=== PATIENT | female | born 1980 | race Caucasian/White ===

== ENCOUNTER → 2017-11-01 | Outpatient (CLI) | payer MEDICAID ==
--- NOTE | 2017-11-01 16:03 | RADIOLOGY REPORT (SQ) ---
EXAM DESCRIPTION: NM HIDA SCAN WITH CCK COMPLETED DATE/TIME: 11/01/2017 3:40 pm REASON FOR STUDY: RUQ ABD PAIN (R10.11) R10.11 RIGHT UPPER QUADRANT PAIN COMPARISON: Report from outside right upper quadrant ultrasound 10/22/2017 RADIONUCLIDE AND DOSE: DOSAGE RADIONUCLIDE: 5.3 millicuries Tc99m Mebrofenin. DOSAGE CCK: 1.3 micrograms. DOSAGE MORPHINE: Not required. The route of agent administration: Intravenous TECHNIQUE: Serial imaging right upper quadrant up to 60 minutes following injection of radionuclide. CCK injected after gallbladder visualized. LIMITATIONS: None. FINDINGS: LIVER: Normal visualization without areas of photopenia. INTRAHEPATIC BILE DUCTS: Normal visualization. COMMON BILE DUCT: Normal visualization. GALLBLADDER: Normal visualization. Post cholecystokinin, there was no appreciable gallbladder cont raction. Gallbladder continued to accumulated activity over the 30 minutes interval post CCK. PHYSICAL RESPONSE: Patients presenting complaint was reproduced. Patient had right upper quadrant p ain and pressure, similar compared to her prior episodes of pain. OTHER: No other significant finding. IMPRESSION: No scintigraphic evidence of cystic duct or common duct obstruction. No appreciable gallbladder contraction after IV CCK. IV cholecystokinin reproduced the patient's symptoms TECHNICAL DOCUMENTATION: JOB ID: [id number] [employer]- All Rights Reserved
== END ==
LOC: RAD 12:35
PROVIDERS: ATTEND Internal Medicine
DX: R10.11 Right upper quadrant pain (principal)
CPT/HCPCS: 78227; A9537; Q9969; J2805

== ENCOUNTER 2017-11-24 12:42 | Day surgery (SDC) | payer MEDICAID ==
[2017-11-22 11:44] LABS: ABSOLUTE BASOPHILS # (AUTO) 0.1 10^3/uL (0.0-0.2); ABSOLUTE EOSINOPHILS # (AUTO) 0.1 10^3/uL (0.0-0.6); ABSOLUTE LYMPHOCYTES (AUTO) 2.1 10^3/uL (0.5-4.7); ABSOLUTE MONOCYTES (AUTO) 0.4 10^3/uL (0.1-1.4); ABSOLUTE NEUT (AUTO) 3.9 10^3/uL (1.7-8.2); BASOPHILS % (AUTO) 0.9 % (0-2); EOSINOPHILS % (AUTO) 1.7 % (0-6); HEMOGLOBIN 13.4 g/dL (12.0-15.5); LYMPHOCYTES % (AUTO) 32.5 % (13-45); MEAN CORPUSCULAR HEMOGLOBIN 29.4 pg (27.0-33.4); MEAN CORPUSCULAR HGB CONC 33.4 g/dL (32.0-36.0); MEAN CORPUSCULAR VOLUME 88 fl (80-97); MONOCYTES % (AUTO) 6.4 % (3-13); PLATELET COUNT 276 10^3/uL (150-450); RED BLOOD COUNT 4.55 10^6/uL (3.72-5.28); RED CELL DISTRIBUTION WIDTH 12.8 % (11.5-14.0); SEGMENTED NEUTROPHILS % (AUTO) 58.5 % (42-78); TOTAL CELLS COUNTED % (AUTO) 100 %; WHITE BLOOD COUNT 6.6 10^3/uL (4.0-10.5)
[2017-11-22 12:10] LABS: ANION GAP 10 (5-19); BLOOD UREA NITROGEN 13 mg/dL (7-20); CALCIUM 9.9 mg/dL (8.4-10.2); CARBON DIOXIDE 32 mmol/L (22-30); CHLORIDE 99 mmol/L (98-107); GLUCOSE 88 mg/dL (75-110); POTASSIUM 4.2 mmol/L (3.6-5.0); SODIUM 141.1 mmol/L (137-145)
[2017-11-22 13:02] LABS: ALANINE AMINOTRANSFERASE 21 U/L (9-52); ALBUMIN 4.7 g/dL (3.5-5.0); ALKALINE PHOSPHATASE 56 U/L (38-126); AMYLASE 54 U/L (30-110); ASPARTATE AMINO TRANSFERASE 21 U/L (14-36); BILIRUBIN,DIRECT 0.3 mg/dL (0.0-0.4); BILIRUBIN,TOTAL 0.3 mg/dL (0.2-1.3)
[~2017-11-24 12:42] MED LIST: CIPROFLOXACIN 400 MG/D5W RTU 400 MG/200 ML RTUPB IV PRN; DEXAMETHASONE SOD PHOSPHATE INJ 4 MG/1 ML VIAL ONE; GLYCOPYRROLATE INJ 0.4 MG/2 ML VIAL ONE; LIDOCAINE 0.5% INJ-PF (5 MG/ML) 50 ML SDV SUBCUT PRN; LIDOCAINE 2% INJ-PF (20 MG/ML) 2 ML AMPUL ONE; NEOSTIGMINE METHYLSULFATE 10 MG/10 ML VIAL ONE; ONDANSETRON HCL INJ/PF 4 MG/2 ML SDV ONE; SUCCINYLCHOLINE CHLORIDE INJ 200 MG/10 ML VIAL ONE; VECURONIUM BROMIDE INJ 10 MG VIAL IV ONE
[2017-11-24] MEDS: LACTATED RINGERS 1000 ML IV PRN ×2 (13:25→16:00)
[2017-11-24] MEDS ORDERED: FAMOTIDINE INJ/PF 20 MG/2 ML SDV IV ONE (14:24)
[2017-11-24] MEDS ORDERED: RINGERS SOLUTION,LACTATED 1,000 ML IV PRN (14:48)
[2017-11-24] MEDS ORDERED: MIDAZOLAM 2 MG/2 ML INJ IV PRN (14:49)
[2017-11-24] MEDS ORDERED: RINGERS SOLUTION,LACTATED 1,000 ML IV ONE (15:00)
[2017-11-24] MEDS ORDERED: SCOPOLAMINE HYDROBROMIDE 1.5 MG PATCH.TD72 TD ONE (15:00)
[2017-11-24] MEDS ORDERED: BUPIVACAINE HCL 0.25 % INJ/PF (2.5 MG/1 ML) 30 ML VIAL ONE (16:05)
[2017-11-24] MEDS ORDERED: ACETAMINOPHEN 100 ML IV ONE (16:31)
[2017-11-24] MEDS ORDERED: MIDAZOLAM 2 MG/2 ML INJ ONE (16:31)
[2017-11-24] MEDS ORDERED: PROPOFOL INJ 200 MG/20 ML VIAL IV ONE (16:31)
[2017-11-24] MEDS ORDERED: HYDROMORPHONE HCL INJ/PF 2 MG/ML AMPULE ONE (16:31)
[2017-11-24] MEDS ORDERED: FENTANYL CITRATE INJ/PF 100 MCG/2 ML AMPUL ONE (16:31)
[2017-11-24] MEDS ORDERED: MORPHINE SULFATE 10 MG/ML INJ IV PRN (17:23)
[2017-11-24] MEDS ORDERED: MEPERIDINE HCL/PF INJ 25 MG/1 ML DISP.SYRIN IV PRN (17:23)
[2017-11-24] MEDS ORDERED: FENTANYL CITRATE INJ/PF 100 MCG/2 ML AMPUL IV PRN ×3 (17:23)
[2017-11-24] MEDS ORDERED: DIPHENHYDRAMINE HCL 50 MG/ML VIAL IV PRN (17:23)
[2017-11-24] MEDS ORDERED: PROMETHAZINE HCL INJ 25 MG/1 ML VIAL IV PRN (17:23)
--- NOTE | 2017-11-24 17:24 | Operative Report ---
Operative Report DATE OF SURGERY: 11/24/17 PREOPERATIVE DIAGNOSIS: Biliary dyskinesia POSTOPERATIVE DIAGNOSIS: Same OPERATION: Laparoscopic cholecystectomy SURGEON: TATUM PACHECO ANESTHESIA: GA TISSUE REMOVED OR ALTERED: 1 gallbladder COMPLICATIONS: None ESTIMATED BLOOD LOSS: Scant INTRAOPERATIVE FINDINGS: See below PROCEDURE: After obtaining informed consent, the patient was taken to the operating room. General Anesthesia was induced; the arms were extended, and the abdomen was exposed, and prepped and draped in a sterile fashion. Instrumentation was set up for laparoscopic cholecystectomy. Surgical plan and surgical timeout were conducted. A vertical incision was made above the umbilicus, and a verres needle was inserted uneventfully into the peritoneal cavity. Pneumoperitoneum was established. The verres needle was removed and a 5 mm trocar was inserted and a 5 mm flexible laparoscope was inserted. Visualization of the peritoneal cavity confirmed safe uneventful entry. Under direct visualization 3 additional 5 mm ports were established, one in the subxiphoid position and second in the subcostal position. Visualization of the hepatobiliary anatomy revealed no anatomic variations. A grasper was placed on the fundus of the gallbladder and the gallbladder is elevated over the right surface of the liver; a second grasper was used to grasp the infundibulum of the gallbladder. The neck of the gallbladder and junction with the cystic duct was dissected out. The Cystic artery was in its usual location medial and cephalad to the cystic duct. The cystic artery was surrounded with a right angle clamp, clipped twice proximally and divided with laparoscopic scissors. We now opened the triangle of Calot by dividing the peritoneal reflection on both the medial and lateral sides of the cystic duct infundibular junction. The critical view was obtained. We now milked the cystic duct of any possible stones, clipped the cystic duct approximately 2 times once distally and divided with scissors. The gallbladder was now removed from the undersurface of the liver using hook cautery dissection. Graspers were repositioned and the gallbladder was removed uneventfully from the abdominal cavity through the super umbilical port site incision. The specimen was examined, then passed off to pathology for permanent analysis. We returned to the peritoneal cavity check for bleeding, and evidence of bile leak, and there was none. We Confirmed satisfactory placement of clips on cystic duct and cystic artery were secured . At this point we felt the operation was complete. The subcutaneous tissue was then anesthetized with quarter percent Marcaine Sponge and needle counts are correct. All ports removed under direct visualization pneumoperitoneum evacuated, and 5 mm port wounds closed with 3-0 Vicryl suture, benzoin and Steri-Strips. The patient was extubated, and taken to the recovery room in stable condition.
--- NOTE | 2017-11-24 17:26 | PDOC DISCHARGE SUMMARY ---
Discharge Summary (SDC) - Discharge Final Diagnosis: Biliary dyskinesia Date of Surgery: 11/24/17 Discharge Date: 11/24/17 Condition: Good Treatment or Instructions: [facility] [address] [place] [id number] Discharge Instructions: Laparoscopic Surgery 1. General Information: a. DO NOT DRIVE a car or operate dangerous machinery for 3-4 days or while taking narcotic pain pills. b. DO NOT consume alcohol, tranquilizers, sleeping medications or any non- prescribed medications for 24 hours unless approved by your doctor or as long as taking narcotic prescription medications. c. DO NOT make important decisions or sign any important papers for the first 24 hours after surgery. d. When discharged home the same day of surgery have a responsible person with you for the first night. 2. Activity Restrictions: 2 weeks. a. NO heavy lifting, straining abdominal muscles, bending over a lot, yard work, house work, or sports for 2 weeks. b. c. It is fine to go for walks, up and down steps, ride in a car. d. Elevate your head when sleeping/resting. 3. Treatment: a. You may shower 24 hours after surgery, no baths or swimming for 2 weeks. Remove band-aids or dressings before shower but leave paper strips (steri-strips ) on the skin to fall off on their own. If still on at postoperative visit they will be removed then. b. Drainage of fluid or blood is not unusual from an incision. If occurs, you can clean with peroxide and cotton ball daily and cover with dry gauze until the wound seals. c. If a lot of bleeding occurs, you can hold pressure with a gauze or cloth over the site for 10 minutes and it will usually stop. If bleeding continues you will need to call for possible evaluation in office or emergency room. 4. Medications: a. You may switch to plain Tylenol, Advil or Aleve as you transition from the narcotic. Many adults find good pain relief with Advil 600-800 mg three times a day with meals. This can cause indigestion, ulcers, and kidney problems with long-term use. b. You should resume all normal medications unless a change is specified by your doctors. c. Begin with clear liquids and may progress to your normal diet if not nauseated. No high fat, high protein foods the day of surgery. Normal diet 6. The following may occur after laparoscopic surgery: a. Shoulder or upper back ache from retained gas that should resolve in 1-2 days b. Soreness and bruising at incision sites will resolve with time. c. Scrotal swelling (labia in women) and bruising is often seen after hernia surgery. d. Sore throat e. Fatigue may last days to weeks. f. Difficulty urinating may occur and may need to come into emergency room for urinary catheter placement. 7. Notify Physician If: a. Worsening or pain not improved with pain medication b. Persistent nausea and vomiting c. Fever above 101 d. Persistent bleeding or swelling at operative site e. Unable to urinate and uncomfortable bladder 6-8 hours after surgery 8..Follow Up Care: a. Schedule a follow up appointment with your doctor for 2 weeks. In the event of any postoperative problems or questions or you may call the office during business hours or the On-Call physician evenings and weekends at [facility]. [facility] I understand the instructions for my postoperative care as described above and a copy has been given to me. Patient/Significant Other Witness Date Referrals: CURT ZAMARRIPA MD [Primary Care Provider] - Discharge Diet: As Tolerated Discharge Activity: Activity As Tolerated, No Lifting Over 10 Pounds, No Lifting /Push/Pulling Home Care Assistance: None Needed Report the Following to Your Physician Immediately: Shortness of Breath, Increase in Pain, Fever over 101 Degrees
[2017-11-24] MEDS: FENTANYL CITRATE INJ/PF 100 MCG/2 ML AMPUL ONE ×3 (17:55→18:05)
[2017-11-24] MEDS ORDERED: DIPHENHYDRAMINE HCL 50 MG/ML VIAL ONE (18:53)
[2017-11-24] MEDS ORDERED: OXYCODONE-ACETAMINOPHEN 5-325 MG TABLET ONE (19:10)
[2017-11-24 20:53] VITALS: BP 103/57
== END 2017-11-24 20:35 | disposition home or self-care (01) ==
LOC: OROUT 12:42
PROVIDERS: ATTEND Surgery
PROC: 0FT44ZZ Resection of Gallbladder, Percutaneous Endoscopic Approach (ICD-10-PCS; principal; 2017-11-24 15:00)
DX: K81.1 Chronic cholecystitis (principal); J45.909 Unspecified asthma, uncomplicated; G43.909 Migraine, unspecified, not intractable, without status migrainosus; G47.00 Insomnia, unspecified; Z80.0 Family history of malignant neoplasm of digestive organs
CPT/HCPCS: 47562; 36415; 82150; 85025; 81025; 80076; 80048; 88304 ×2; J2250; J1100; J1200; J3010; J3490 ×4; J0330; J2405; S0020; J2704; J0744; S0028; J0131; 790; J1170

== ENCOUNTER 2020-01-29 16:34 | Emergency (ER) | payer MEDICAID ==
[2020-01-29 16:44] VITALS: BP 124/58
--- NOTE | 2020-01-29 17:05 | ER Document Report ---
HPI - HPI Time Seen by Provider: 01/29/20 16:54 Context: 39-year-old female presents emergency department with complaints of cough congestion since January 25. Reports low-grade fever last night. Reports vomiting sometimes after coughing so hard. Reports a little bit of loose stools. Patient reports her best friend recently went to a [employer]. She reports that family was just notified that they were in contact with somebody with a coronavirus. Her best friend and her family are on quarantine for a week. Patient called the coronavirus line and was told to come to the emergency department. Associated Symptoms: Nonproductive cough, Fever, Sore throat Exacerbated by: Denies Relieved by: Denies Similar symptoms previously: No Recently seen / treated by doctor: No Past Medical History - General Information source: Patient - Social History Smoking Status: Unknown if Ever Smoked Frequency of alcohol use: Rare Drug Abuse: None Lives with: Family Family History: None Patient has suicidal ideation: No Patient has homicidal ideation: No - Past Medical History Cardiac Medical History: Denies: Hx Coronary Artery Disease, Hx Heart Attack, Hx Hypertension Pulmonary Medical History: Reports: Hx Asthma - RARELY USE INHALER Denies: Hx Bronchitis, Hx COPD, Hx Pneumonia Neurological Medical History: Reports: Hx Seizures - 5 YEARS AGO. Denies: Hx Cerebrovascular Accident Musculoskeletal Medical History: Denies Hx Arthritis Surgical Hx: Negative - Immunizations Hx Diphtheria, Pertussis, Tetanus Vaccination: No Vertical Provider Document - CONSTITUTIONAL Agree With Documented VS: Yes Exam Limitations: No Limitations General Appearance: WD/WN, No Apparent Distress - nontoxic looking - INFECTION CONTROL TRAVEL OUTSIDE OF THE [place] IN LAST 30 DAYS: No - HEENT HEENT: Atraumatic, Normocephalic, Pharyngeal Erythema. negative: Conjuctival Injection, Tympanic Membrane Red, Tympanic Membrane Bulging - NECK Neck: Normal Inspection, Supple. negative: Lymphadenopathy-Left, Lymphadenopathy-Right - RESPIRATORY Respiratory: Breath Sounds Normal, No Respiratory Distress - Respiratory rate even unlabored no retractions. negative: Rhonchi, Wheezing - CARDIOVASCULAR Cardiovascular: Regular Rate, Regular Rhythm - GI/ABDOMEN Gastrointestinal: Abdomen Soft, Abdomen Non-Tender - MUSCULOSKELETAL/EXTREMETIES Musculoskeletal/Extremeties: MAEW, FROM - NEURO Level of Consciousness: Awake, Alert, Appropriate Motor/Sensory: No Motor Deficit - DERM Integumentary: Warm, Dry, No Rash - No visual rash Course - Re-evaluation Re-evalutation: 01/29/20 17:03 Patient presents with cough cold sore throat. Patient was in recent contact with a person that was exposed to somebody with a coronavirus. Chest x-ray strep and influenza ordered. Patient has respiratory rate even unlabored no distress looks nontoxic. - Vital Signs Vital signs: Temp Pulse Resp BP Pulse Ox 98.3 F 94 20 124/58 L 97 01/29/20 16:43 01/29/20 16:43 01/29/20 16:43 01/29/20 16:43 01/29/20 16:43 Discharge - Discharge Clinical Impression: Cough, Sore throat Condition: Stable Disposition: HOME, SELF-CARE Instructions: Sore Throat ([facility]), Acetaminophen, Fever ([facility]) Additional Instructions: *You have been evaluated for cold symptoms today, cough, fever, congestion, sore throat *Increase fluid intake as discussed *Take medication as prescribed *Monitor your temperature, take Tylenol as indicated *Follow up with a primary care provider in 3-5 days *Return to ED for worsening condition, changes, needs Referrals: CURT ZAMARRIPA MD [Primary Care Provider] - Follow up in 3-5 days
--- NOTE | 2020-01-29 17:18 | ER Document Report ---
ED Medical Screen (RME) - General Chief Complaint: Congestion Stated Complaint: COUGH/CONGESTION Time Seen by Provider: 01/29/20 16:54 Primary Care Provider: CURT ZAMARRIPA MD [Primary Care Provider] - Follow up in 3-5 days Mode of Arrival: Ambulatory Information source: Patient Notes: 39-year-old female presents emergency department with complaints of cough co ngestion since January 25. Reports low-grade fever last night. Reports vomiting sometimes after coughing so hard. Reports a little bit of loose stools. Patient reports her best friend recently went to a [employer]. She reports that family was just notified that they were in contact with somebody with a coronavirus. Her best friend and her family are on quarantine for a week. Patient called the coronavirus line and was told to come to the emergency department. I have greeted and performed a rapid initial assessment of this patient. A comprehensive ED assessment and evaluation of the patient, analysis of test results and completion of the medical decision making process will be conducted by additional ED providers. TRAVEL OUTSIDE OF THE [place] IN LAST 30 DAYS: No - Related Data Allergies/Adverse Reactions: Penicillins Allergy (Mild, Verified 01/29/20 16:50) GI upset Past Medical History - Social History Chew tobacco use (# tins/day): No Frequency of alcohol use: Rare Drug Abuse: None - Past Medical History Cardiac Medical History: Denies: Hx Coronary Artery Disease, Hx Heart Attack, Hx Hypertension Pulmonary Medical History: Reports: Hx Asthma - RARELY USE INHALER Denies: Hx Bronchitis, Hx COPD, Hx Pneumonia Neurological Medical History: Reports: Hx Seizures - 5 YEARS AGO. Denies: Hx Cerebrovascular Accident Musculoskeltal Medical History: Denies Hx Arthritis Surgical Hx: Negative - Immunizations Hx Diphtheria, Pertussis, Tetanus Vaccination: No Physical Exam - Vital signs Vitals: Temp Pulse Resp BP Pulse Ox 98.3 F 94 20 124/58 L 97 01/29/20 16:43 01/29/20 16:43 01/29/20 16:43 01/29/20 16:43 01/29/20 16:43 Course - Vital Signs Vital signs: Temp Pulse Resp BP Pulse Ox 98.3 F 94 20 124/58 L 97 01/29/20 16:43 01/29/20 16:43 01/29/20 16:43 01/29/20 16:43 01/29/20 16:43 Doctor's Discharge - Discharge Clinical Impression: Cough, Sore throat Condition: Stable Disposition: HOME, SELF-CARE Instructions: Acetaminophen, Fever ([facility]), Sore Throat ([facility]) Additional Instructions: *You have been evaluated for cold symptoms today, cough, fever, congestion, sore throat *Increase fluid intake as discussed *Take medication as prescribed *Monitor your temperature, take Tylenol as indicated *Follow up with a primary care provider in 3-5 days *Return to ED for worsening condition, changes, needs Referrals: CURT ZAMARRIPA MD [Primary Care Provider] - Follow up in 3-5 days
[2020-01-29 18:02] LABS: A TYPE INFLUENZA AG NEGATIVE (NEGATIVE); B INFLUENZA AG NEGATIVE (NEGATIVE)
--- NOTE | 2020-01-29 18:15 | RADIOLOGY REPORT (SQ) ---
EXAM DESCRIPTION: CHEST SINGLE VIEW COMPLETED DATE/TIME: 01/29/2020 5:53 pm REASON FOR STUDY: cough COMPARISON: None. EXAM PARAMETERS: NUMBER OF VIEWS: One view. TECHNIQUE: Single frontal radiographic view of the chest acquired. RADIATION DOSE: NA LIMITATIONS: None. FINDINGS: LUNGS AND PLEURA: No opacities, masses or pneumothorax. No pleural effusion. MEDIASTINUM AND HILAR STRUCTURES: No masses. Contour normal. HEART AND VASCULAR STRUCTURES: Heart normal in size. Normal vasculature. BONES: No acute findings. HARDWARE: None in the chest. OTHER: No other significant finding. IMPRESSION: NO ACUTE RADIOGRAPHIC FINDING IN THE CHEST. TECHNICAL DOCUMENTATION: JOB ID: [id number] [employer]- All Rights Reserved Reading location - IP/workstation name: [email or web address]
--- NOTE | 2020-01-29 18:46 | ER Document Report ---
HPI - HPI Time Seen by Provider: 01/29/20 16:54 Pain Level: 2 Context: Patient is a 39-year-old female who presents the emergency department with a chief complaint of cough, congestion, and a temperature of 100.9 at home. Patient states that she was exposed to another person who was told to self quarantine. Patient denies any past medical history. She does not take any medications. - EENT EENT: REPORTS: Sore Throat. DENIES: Ear Pain, Eye problems - NEURO Neurology: REPORTS: Weakness. DENIES: Headache, Vision blurred, Dizzinesss / Vertigo - CARDIOVASCULAR Cardiovascular: REPORTS: Chest pain - RESPIRATORY Respiratory: REPORTS: Trouble Breathing, Coughing - GASTROINTESTINAL Gastrointestinal: DENIES: Abdominal Pain, Black / Bloody Stools - URINARY Urinary: DENIES: Dysuria, Urgency, Frequency - REPRODUCTIVE LMP: 01/15/20 Reproductive: DENIES: : - MUSCULOSKELETAL Musculoskeletal: DENIES: Extremity pain Past Medical History - General Information source: Patient - Social History Smoking Status: Never Smoker Chew tobacco use (# tins/day): No Frequency of alcohol use: Rare Drug Abuse: None Family History: Reviewed & Not Pertinent Patient has suicidal ideation: No Patient has homicidal ideation: No - Past Medical History Cardiac Medical History: Denies: Hx Coronary Artery Disease, Hx Heart Attack, Hx Hypertension Pulmonary Medical History: Reports: Hx Asthma - RARELY USE INHALER Denies: Hx Bronchitis, Hx COPD, Hx Pneumonia Neurological Medical History: Reports: Hx Seizures - 5 YEARS AGO. Denies: Hx Cerebrovascular Accident Musculoskeletal Medical History: Denies Hx Arthritis Surgical Hx: Negative - Immunizations Hx Diphtheria, Pertussis, Tetanus Vaccination: No Vertical Provider Document - CONSTITUTIONAL Agree With Documented VS: Yes Exam Limitations: No Limitations General Appearance: No Apparent Distress - INFECTION CONTROL TRAVEL OUTSIDE OF THE [place] IN LAST 30 DAYS: No - HEENT HEENT: Atraumatic, Normocephalic, PERRLA - NECK Neck: Normal Inspection. negative: Lymphadenopathy-Left, Lymphadenopathy-Right - RESPIRATORY Respiratory: negative: Breath Sounds Normal, No Respiratory Distress - CARDIOVASCULAR Cardiovascular: Regular Rate, Regular Rhythm Pulses: Normal: Radial - MUSCULOSKELETAL/EXTREMETIES Musculoskeletal/Extremeties: FROM - NEURO Level of Consciousness: Awake, Alert, Appropriate Motor/Sensory: No Motor Deficit, No Sensory Deficit - DERM Integumentary: Warm, Dry, No Rash Course - Re-evaluation Re-evalutation: 01/29/20 18:48 Chest x-ray and influenza tests are negative. At this time, the patient will be tested for COVID 19. Instructed the patient to self isolate. Instructed her to wash her hands frequently. She is in agreement with this plan. I offered the patient some Zofran to go home with and she states that she only vomits when she coughs a lot. She states that she is able to control her cough at home. Follow-up precautions were given. Verbal discharge instructions were given to the patient. They verbalized understanding. They are stable for discharge. - Vital Signs Vital signs: Temp Pulse Resp BP Pulse Ox 98.3 F 94 20 124/58 L 97 01/29/20 16:43 01/29/20 16:43 01/29/20 16:43 01/29/20 16:43 01/29/20 16:43 Discharge - Discharge Clinical Impression: Cough, Sore throat Condition: Stable Disposition: HOME, SELF-CARE Instructions: Acetaminophen, Fever ([facility]), Sore Throat ([facility]) Additional Instructions: *You have been evaluated for cold symptoms today, cough, fever, congestion, sore throat *Increase fluid intake *Take medication as prescribed *Take Tylenol and ibuprofen for fever pain. *Follow up with a primary care provider Please self quarantine for 14 days. If you test negative for COVID 19, you are released from quarantine. Wash your hands frequently, wear a mask when indicated. Do not cough on anyone. Referrals: CURT ZAMARRIPA MD [Primary Care Provider] - Follow up as needed
== END 2020-01-29 19:01 | disposition home or self-care (01) ==
LOC: ER 16:34
DX: R05 Cough (principal); J02.9 Acute pharyngitis, unspecified; R53.1 Weakness; R07.9 Chest pain, unspecified; J45.909 Unspecified asthma, uncomplicated; Z20.828 Contact with and (suspected) exposure to other viral communicable diseases
CPT/HCPCS: 36415; 71045; 87070; 87635; 87804; 87880; 99283

== ENCOUNTER 2020-02-04 16:12 | Emergency (ER) | payer MEDICAID ==
[2020-02-04] MEDS ORDERED: KETOROLAC TROMETHAMINE INJ/PF 30 MG/1 ML SDV IV ONE (16:43)
--- NOTE | 2020-02-04 16:43 | ER Document Report ---
HPI - HPI Time Seen by Provider: 02/04/20 16:35 Pain Level: 2 Notes: Patient is a 39-year-old female who presents to the ED complaining of nasal congestion/discharge, dry nonproductive cough, fevers, body ache 1wk. She was eval'd 6 days ago and was told to be under quarantine. She had unremarkable labs at her last visit and a coronavirus test pending which is still pending. Patient states that her cough was becoming more harsh and she is getting some soreness in her chest only with her cough and when she pushes on her chest which is why she came back today. Patient states that she is still eating and drinking without difficulties. She is still urinating normally having normal bowel movements. Patient has been using some [id number] meds for symptoms. She denies any significant past medical history including cardiopulmonary history and immunocompromised conditions. Pt is not aware of any specific exposure to lin. Denies any current headache, neck pain, sore throat, palpitations, syncope, shortness of breath, wheeze, dyspnea, abdominal pain, nausea/vomiting/diarrhea, urinary retention, dysuria, hematuria, or rash. - ROS Systems Reviewed and Negative: Yes All other systems reviewed and negative - REPRODUCTIVE Reproductive: DENIES: : Past Medical History - Social History Smoking Status: Never Smoker Family History: Reviewed & Not Pertinent Patient has suicidal ideation: No Patient has homicidal ideation: No - Past Medical History Cardiac Medical History: Denies: Hx Coronary Artery Disease, Hx Heart Attack, Hx Hypertension Pulmonary Medical History: Reports: Hx Asthma - RARELY USE INHALER Denies: Hx Bronchitis, Hx COPD, Hx Pneumonia Neurological Medical History: Reports: Hx Seizures - 5 YEARS AGO. Denies: Hx Cerebrovascular Accident Musculoskeletal Medical History: Denies Hx Arthritis - Immunizations Hx Diphtheria, Pertussis, Tetanus Vaccination: No Vertical Provider Document - CONSTITUTIONAL Agree With Documented VS: Yes Notes: PHYSICAL EXAMINATION: GENERAL: Well-appearing, well-nourished and in no acute distress. HEAD: Atraumatic, normocephalic. EYES: Pupils equal round and reactive to light, extraocular movements intact, sclera anicteric, conjunctiva are normal. ENT: Nares patent and with clear discharge. oropharynx clear without exudates. No tonsilar hypertrophy or erythema. Moist mucous membranes. NECK: Normal range of motion, supple without lymphadenopathy Chest: + reproducible tenderness to palpation of the rt pectoral area and reproducible with arm extension/abduction. LUNGS: Breath sounds clear to auscultation bilaterally and equal. No wheezes rales or rhonchi. HEART: Regular rate and rhythm without murmurs, rubs, gallops. ABDOMEN: Soft, nontender, nondistended abdomen. No guarding, no rebound. Normal bowel sounds present. No CVA tenderness bilaterally. Musculoskeletal: FROM to passive/active. Strength 5+/5. Chavez neg. No asymmetry to LE's. Extremities: No cyanosis, clubbing, or edema b/l. Peripheral pulses 2+. Capillary refill less than 3 seconds. NEUROLOGICAL: Normal speech, normal gait. PSYCH: Normal mood, normal affect. SKIN: Warm, Dry, normal turgor, no rashes or lesions noted. - INFECTION CONTROL TRAVEL OUTSIDE OF THE [place] IN LAST 30 DAYS: No Course - Re-evaluation Re-evalutation: 02/04/20 Patient is an afebrile, well-hydrated, 39-year-old female who presents to the ED with acute URI, suspect viral, questionable COVID/Influenza. Pt has reproducible chest wall tenderness that is only present with a cough and palpation. No CP, SOB, or dyspnea otherwise. Vitals are acceptable. PE is otherwise unremarkable. Rapid strep, influenza, and chest XR negative at last visit and repeat chest x-ray remains unremarkable. COVID testing performed and is still pending from her last visit. No further labs or imaging warranted at this time based on H&P. Patient has no significant cardiopulmonary or immunocompromised medical conditions. Patient's lungs are clear to auscultation bilaterally without tachycardia, hypoxia, or tachypnea. Patient is tolerating p.o. without any difficulties. PERC/Wells negative. Thoroughly reviewed self- quarantine until notified about your viral testing. Stressed the importance of it and the risks/benefits. Low suspicion for any meningitis, sepsis, peritonsillar/pharyngeal abscess, respiratory compromise, severe dehydration, pneumonia, or other emergent systemic condition at this time. Patient is aware this condition can change from initial presentation and needs to monitor symptoms closely. Rx for tessalon, albuterol/spacer. Conservative measures otherwise for symptoms. Recheck with your PCM as needed otherwise. Return to the ED with any worsening/concerning symptoms otherwise as reviewed in discharge. Patient is in agreement. - Vital Signs Vital signs: Temp Pulse Resp BP Pulse Ox 98.5 F 73 23 H 120/62 98 02/04/20 16:33 02/04/20 16:33 02/04/20 16:33 02/04/20 16:33 02/04/20 16:33 Discharge - Discharge Clinical Impression: Acute URI Condition: Stable Disposition: HOME, SELF-CARE Instructions: Upper Respiratory Illness ([facility]) Additional Instructions: You have been tested for coronavirus. It is very important that you self- quarantine at home until notified about your lab result!! Maintain adequate fluid intake tylenol/ibuprofen as needed alternating every 3 hours for fever/body ache over the counter cold medication as needed for symptoms Humidified air may help Wash your hands regularly Wear a mask when coughing F/u: with your PCM as needed otherwise and/or when cleared Return to the ED with any fever, altered mental status/behavior, chest pain, palpitations, syncope, headache, neck pain/stiffness, shortness of breath, chest pains, wheezing, drooling, trouble swallowing/breathing, abdominal pain, n/v/d, rash, or worsening/concerning symptoms otherwise. Prescriptions: Benzonatate [Tessalon Perles 100 mg Capsule] 100 mg PO Q8HP PRN #15 capsule PRN Reason: Albuterol Sulfate [Proair HFA Inhalation Aerosol 8.5 gm MDI] 2 puff IH Q4H PRN #1 mdi PRN Reason: Inhaler, Assist Devices [Space Chamber Plus] 1 each MC ASDIR PRN #1 spacer PRN Reason: Referrals: CURT ZAMARRIPA MD [Primary Care Provider] - Follow up as needed
--- NOTE | 2020-02-04 17:07 | RADIOLOGY REPORT (SQ) ---
EXAM DESCRIPTION: CHEST SINGLE VIEW COMPLETED DATE/TIME: 02/04/2020 4:54 pm REASON FOR STUDY: cough COMPARISON: Chest x-ray 01/29/2020 EXAM PARAMETERS: NUMBER OF VIEWS: One view. TECHNIQUE: Single frontal radiographic view of the chest acquired. RADIATION DOSE: NA LIMITATIONS: None. FINDINGS: LUNGS AND PLEURA: No consolidation, pneumothorax or pleural effusion. MEDIASTINUM AND HILAR STRUCTURES: Contour normal. HEART AND VASCULAR STRUCTURES: Heart normal in size. Normal vasculature. BONES: No acute findings. HARDWARE: None in the chest. IMPRESSION: NO ACUTE RADIOGRAPHIC FINDING IN THE CHEST. TECHNICAL DOCUMENTATION: JOB ID: [id number] 2010 [employer]- All Rights Reserved Reading location - IP/workstation name: [email or web address]
[2020-02-04 17:27] VITALS: BP 100/58
== END 2020-02-04 17:27 | disposition home or self-care (01) ==
LOC: ER 16:12
DX: J06.9 Acute upper respiratory infection, unspecified (principal); R05 Cough; R50.9 Fever, unspecified; R09.89 Other specified symptoms and signs involving the circulatory and respiratory systems; J45.909 Unspecified asthma, uncomplicated
CPT/HCPCS: 99283; 96374; 71045; J1885

== ENCOUNTER 2020-02-17 13:25 | Emergency (ER) | payer MEDICAID ==
--- NOTE | 2020-02-17 13:34 | ER Document Report ---
ED Medical Screen (RME) - General Chief Complaint: Flank Pain Stated Complaint: RIGHT FLANK PAIN Time Seen by Provider: 02/17/20 13:30 Primary Care Provider: CURT ZAMARRIPA MD [Primary Care Provider] - Follow up as needed Mode of Arrival: Wheelchair Information source: Patient Notes: 39-year-old female with history of kidney stone 14 years ago presents to the e mergency department with complaints of lower abdominal, pain unable to void. Reports symptoms started yesterday. She reports she has not voided since early this morning. Complains of severe lower abdominal pain radiating to her pelvic. She did have a virtual appointment with her provider yesterday and was treated with antibiotics. She is unsure what she was treated with. She reports she is vomited due to the pain denies fever. Patient does not think she is . Reports her had a vasectomy. I have greeted and performed a rapid initial assessment of this patient. A comprehensive ED assessment and evaluation of the patient, analysis of test results and completion of the medical decision making process will be conducted by additional ED providers. TRAVEL OUTSIDE OF THE [place] IN LAST 30 DAYS: No - Related Data Allergies/Adverse Reactions: Penicillins Allergy (Mild, Verified 02/17/20 13:28) GI upset Past Medical History - Past Medical History Cardiac Medical History: Denies: Hx Coronary Artery Disease, Hx Heart Attack, Hx Hypertension Pulmonary Medical History: Reports: Hx Asthma - RARELY USE INHALER Denies: Hx Bronchitis, Hx COPD, Hx Pneumonia Neurological Medical History: Reports: Hx Seizures - 5 YEARS AGO. Denies: Hx Cerebrovascular Accident Musculoskeltal Medical History: Denies Hx Arthritis - Immunizations Hx Diphtheria, Pertussis, Tetanus Vaccination: No Physical Exam - Vital signs Vitals: Temp Pulse Resp BP Pulse Ox 97.9 F 70 24 H 127/67 H 100 02/17/20 13:28 02/17/20 13:28 02/17/20 13:28 02/17/20 13:28 02/17/20 13:28 Course - Vital Signs Vital signs: Temp Pulse Resp BP Pulse Ox 97.9 F 70 24 H 127/67 H 100 02/17/20 13:28 02/17/20 13:28 02/17/20 13:28 02/17/20 13:28 02/17/20 13:28 Doctor's Discharge - Discharge Referrals: CURT ZAMARRIPA MD [Primary Care Provider] - Follow up as needed
[2020-02-17] MEDS ORDERED: ONDANSETRON HCL INJ/PF 4 MG/2 ML SDV IV ONE (13:35)
[2020-02-17] MEDS ORDERED: NORMAL SALINE 1000 ML 1,000 ML IV ONE (13:35)
[2020-02-17] MEDS ORDERED: KETOROLAC TROMETHAMINE INJ/PF 30 MG/1 ML SDV IV ONE (13:35)
[2020-02-17] MEDS ORDERED: MORPHINE SULFATE 10 MG/ML INJ IV ONE (13:36)
--- NOTE | 2020-02-17 13:53 | ER Document Report ---
ED General - General Chief Complaint: Flank Pain Stated Complaint: RIGHT FLANK PAIN Time Seen by Provider: 02/17/20 13:30 Primary Care Provider: CURT ZAMARRIPA MD [Primary Care Provider] - Follow up as needed Mode of Arrival: Wheelchair Notes: Patient is a 39-year-old white female with a past medical history of a kidney stone on the right side when she was many years ago who presents to the emergency department the chief complaint of right flank pain that began yesterday. She states it started around 5 in the morning. She called her doctor who did a telemedicine visit and suspected either a stone or an infection, called her in an antibiotic which she has begun taking and told her to take something at home for pain. She states her symptoms went away last night but came back with a vengeance this morning. States the pain is unbearable, worse than labor. States it feels like a contraction around the right flank. She also describes a sensation of feeling like she has to urinate urgently without any urination happening. She denies any visible blood. Does admit to some scant diarrhea today and vomiting x2 that she relates secondary to the pain. States she cannot tolerate oral intake due to nausea from the pain. She denies any fever, fall, injury or trauma. No recent travel or sick contacts. She does add that she was under quarantine recently for a severe cough, was tested for Covid 19 and quarantined in home for 9 days. She states the cough is significantly improved and her Covid test was negative. No vaginal bleeding or discharge. Reports that her has a vasectomy and she should not be . TRAVEL OUTSIDE OF THE [place] IN LAST 30 DAYS: No - Related Data Allergies/Adverse Reactions: Penicillins Allergy (Mild, Verified 02/17/20 13:28) GI upset Past Medical History - General Information source: Patient - Social History Smoking Status: Current Every Day Smoker Family History: Reviewed & Not Pertinent Patient has suicidal ideation: No Patient has homicidal ideation: No - Past Medical History Cardiac Medical History: Denies: Hx Coronary Artery Disease, Hx Heart Attack, Hx Hypertension Pulmonary Medical History: Reports: Hx Asthma - RARELY USE INHALER Denies: Hx Bronchitis, Hx COPD, Hx Pneumonia Neurological Medical History: Reports: Hx Seizures - 5 YEARS AGO. Denies: Hx Cerebrovascular Accident Musculoskeletal Medical History: Denies Hx Arthritis - Immunizations Hx Diphtheria, Pertussis, Tetanus Vaccination: No Review of Systems - Review of Systems Gastrointestinal: Abdominal pain, Diarrhea, Nausea, Vomiting Genitourinary: Flank pain, Urgency, Retention -: Yes All other systems reviewed and negative Physical Exam - Vital signs Vitals: Temp Pulse Resp BP Pulse Ox 97.9 F 70 24 H 127/67 H 100 02/17/20 13:28 02/17/20 13:28 02/17/20 13:28 02/17/20 13:28 02/17/20 13:28 - General General appearance: Alert In distress: Mild - HEENT Head: Normocephalic, Atraumatic Eyes: Normal Conjunctiva: Normal Extraocular movements intact: Yes Mucous membranes: Normal, Moist - Respiratory Respiratory status: No respiratory distress Chest status: Nontender Breath sounds: Normal Chest palpation: Normal - Cardiovascular Rhythm: Regular Heart sounds: Normal auscultation - Abdominal Inspection: Normal Distension: No distension Bowel sounds: Hypoactive Tenderness: Other - Mild tenderness along the course of the right flank. The patient did exhibit some guarding and had some rebound tenderness in the left lower quadrant - Back Back: CVA tenderness - Right-sided - Neurological Neuro grossly intact: Yes Cognition: Normal Orientation: AAOx4 - Psychological Associated symptoms: Anxious, Tearful - Skin Skin Temperature: Warm Skin Moisture: Dry Skin Color: Normal Course - Re-evaluation Re-evalutation: 02/17/20 16:38 Patient with a 2 mm stone on the right near the UVJ that is partially obstructi ve causing hydroureter and hydronephrosis. She also has a 3 mm stone in the left kidney that is nonobstructive. Her pain is controlled. She feels better here upon reevaluation. Lab work otherwise unremarkable, she will be sent home with pain medication, nausea medicines and Flomax. Encouraged rest and push clear fluids. Did caution her that the Flomax could potentially cause the left stone to displace into the ureter. We discussed risk versus benefits of Flomax. I did advise that if she starts to feel any pain on the left side at all that she should return to the emergency department immediately as she might wind up with bilateral obstructions and hydronephrosis which would warrant h ospitalization. I counseled her at length regarding the importance of outpatient follow-up and advised that she return here or any ER immediately with any new, persistent or worsening symptoms. She verbalized understood and agreed. 02/17/20 16:39 - Vital Signs Vital signs: Temp Pulse Resp BP Pulse Ox 97.9 F 70 24 H 127/67 H 100 02/17/20 13:28 02/17/20 13:28 02/17/20 13:28 02/17/20 13:28 02/17/20 13:28 - Laboratory Result Diagrams: 02/17/20 14:20 02/17/20 14:20 Laboratory results interpreted by me: 02/17/20 02/17/20 13:47 14:20 Glucose 125 H Total Protein 8.5 H Urine Blood LARGE H Urine Ascorbic Acid 40 H Discharge - Discharge Clinical Impression: Ureterolithiasis, Nephrolithiasis Hydronephrosis Qualifiers: Hydronephrosis type: unspecified Qualified Code(s): N13.30 - Unspecified hydronephrosis Condition: Stable Disposition: HOME, SELF-CARE Instructions: Kidney Stone ([facility]) Additional Instructions: Follow-up with your regular doctor in 2 to 3 days for reevaluation. Return here or any ER immediately with any new, persistent or worsening symptoms. Please call the urologist that you have been referred to for further outpatient care management. Prescriptions: Tamsulosin HCl [Flomax 0.4 mg Cap.sr] 0.4 mg PO DAILY #7 cap.sr.24h Hydrocodone/Acetaminophen [Volcano 5-325 Tablet] 1 each PO Q6 PRN #12 tablet PRN Reason: Ondansetron [Zofran Odt 4 mg Tablet] 4 mg PO Q8 PRN #20 tab.rapdis PRN Reason: Referrals: CURT ZAMARRIPA MD [Primary Care Provider] - Follow up as needed
[2020-02-17 14:05] LABS: AMORPHOUS SEDIMENT,URINE TRACE /HPF; APPEARANCE,URINE SLIGHTLY-CLOUDY; BILIRUBIN,URINE NEGATIVE (NEGATIVE); COLOR,URINE YELLOW; GLUCOSE, URINE NEGATIVE (NEGATIVE); KETONES,URINE NEGATIVE (NEGATIVE); PROTEIN,URINE NEGATIVE (NEGATIVE); URINE SPECIFIC GRAVITY 1.021; UROBILINOGEN,URINE NEGATIVE mg/dL (<2.0)
[2020-02-17 14:30] LABS: ABSOLUTE EOSINOPHILS # (AUTO) 0.1 10^3/uL (0.0-0.6); ABSOLUTE LYMPHOCYTES (AUTO) 2.3 10^3/uL (0.5-4.7); ABSOLUTE MONOCYTES (AUTO) 0.4 10^3/uL (0.1-1.4); ABSOLUTE NEUT (AUTO) 6.6 10^3/uL (1.7-8.2); BASOPHILS % (AUTO) 0.3 % (0-2); HEMATOCRIT 39.6 % (36.0-47.0); HEMOGLOBIN 13.7 g/dL (12.0-15.5); LYMPHOCYTES % (AUTO) 24.5 % (13-45); MEAN CORPUSCULAR HEMOGLOBIN 30.6 pg (27.0-33.4); MEAN CORPUSCULAR HGB CONC 34.6 g/dL (32.0-36.0); MEAN CORPUSCULAR VOLUME 88 fl (80-97); PLATELET COUNT 303 10^3/uL (150-450); RED BLOOD COUNT 4.48 10^6/uL (3.72-5.28); RED CELL DISTRIBUTION WIDTH 13.5 % (11.5-14.0); SEGMENTED NEUTROPHILS % (AUTO) 70.2 % (42-78); TOTAL CELLS COUNTED % (AUTO) 100 %; WHITE BLOOD COUNT 9.4 10^3/uL (4.0-10.5)
[2020-02-17 14:47] LABS: ALBUMIN 4.6 g/dL (3.5-5.0); ALKALINE PHOSPHATASE 56 U/L (38-126); ANION GAP 9 (5-19); ASPARTATE AMINO TRANSFERASE 24 U/L (14-36); BILIRUBIN,DIRECT 0.2 mg/dL (0.0-0.4); BILIRUBIN,TOTAL 0.3 mg/dL (0.2-1.3); BLOOD UREA NITROGEN 17 mg/dL (7-20); CALCIUM 9.8 mg/dL (8.4-10.2); CARBON DIOXIDE 26 mmol/L (22-30); CHLORIDE 104 mmol/L (98-107); GLUCOSE 125 mg/dL (75-110); POTASSIUM 4.1 mmol/L (3.6-5.0); TOTAL PROTEIN 8.5 g/dL (6.3-8.2)
[2020-02-17] MEDS ORDERED: HYDROMORPHONE HCL INJ/PF 2 MG/ML AMPULE IV ONE (15:17)
--- NOTE | 2020-02-17 16:02 | RADIOLOGY REPORT (SQ) ---
EXAM DESCRIPTION: CT ABD/PELVIS NO ORAL OR IV IMAGES COMPLETED DATE/TIME: 02/17/2020 2:41 pm REASON FOR STUDY: r flank pain hematuria COMPARISON: None. TECHNIQUE: CT scan of the abdomen and pelvis performed without intravenous or oral contrast. Images reviewed with lung, soft tissue, and bone windows. Reconstructed coronal and sagittal MPR images revi ewed. All images stored on PACS. All CT scanners at this facility use dose modulation, iterative reconstruction, and/or weight based d osing when appropriate to reduce radiation dose to as low as reasonably achievable (ALARA). [facility]: Dose Right [facility]: CareDose [facility]: Dose Right [facility]: Teradose 4D [facility]: Smart ITeam RADIATION DOSE: CT Rad equipment meets quality standard of care and radiation dose reduction techniq ues were employed. CTDIvol: 7.8 mGy. DLP: 410 mGy-cm.mGy. LIMITATIONS: None. FINDINGS: LOWER CHEST: No significant findings. No nodules or infiltrates. NON-CONTRASTED LIVER, SPLEEN, ADRENALS: Evaluation limited by lack of IV contrast. No identified sign ificant masses. PANCREAS: No masses. No peripancreatic inflammatory changes. GALLBLADDER: No identified stones by CT criteria. No inflammatory changes to suggest cholecystitis. RIGHT KIDNEY AND URETER: No suspicious masses. Assessment limited by lack of IV contrast. There is an obstructing 2 mm distal right ureteral calculus at the ureterovesical junction with mild right hyd ronephrosis and hydroureter. No other obstructing or nonobstructing renal or ureteral calculi. LEFT KIDNEY AND URETER: No suspicious masses. Assessment limited by lack of IV contrast. 3 mm nonob structing left superior pole renal calculus. No obstructing renal or ureteral calculi. No hydronep hrosis or hydroureter. AORTA AND RETROPERITONEUM: No aneurysm. No retroperitoneal masses or adenopathy. BOWEL AND PERITONEAL CAVITY: No obvious masses or inflammatory changes. No free fluid. APPENDIX: Normal. PELVIS, BLADDER, AND ABDOMINAL WALL:No abnormal masses. No free fluid. Bladder normal. Calcified pel hguo phlebolith in the right pelvis. . BONES: No significant findings. OTHER: No other significant finding. IMPRESSION: 1. 2 mm distal right ureteral calculus at the ureterovesical junction with mild right hydronephrosis and hydroureter. 2. 3 mm nonobstructing left renal calculus. COMMENT: Quality ID # [id number]: Final reports with documentation of one or more dose reduction techniques (e.g., Automated exposure control, adjustment of the mA and/or kV according to patient size, use of iterative reconstruction technique) TECHNICAL DOCUMENTATION: JOB ID: [id number] 2010 [employer]- All Rights Reserved Reading location - IP/workstation name: [email or web address]
[2020-02-17 16:41] VITALS: BP 112/57
== END 2020-02-17 17:09 | disposition home or self-care (01) ==
LOC: ER 13:25
DX: N13.2 Hydronephrosis with renal and ureteral calculous obstruction (principal); R10.9 Unspecified abdominal pain; R39.15 Urgency of urination; R33.9 Retention of urine, unspecified; R11.2 Nausea with vomiting, unspecified; R19.7 Diarrhea, unspecified; F17.200 Nicotine dependence, unspecified, uncomplicated; J45.909 Unspecified asthma, uncomplicated; Z88.0 Allergy status to penicillin
CPT/HCPCS: 99284; 96361; 51701; 96374; 96375; 36415; 84703; 85025; 80053; 81001; 74176; J2270; J1170; J2405; J7030

== ENCOUNTER 2020-02-29 12:04 | Emergency (ER) | payer MEDICAID ==
[2020-02-29] MEDS ORDERED: KETOROLAC TROMETHAMINE INJ/PF 30 MG/1 ML SDV IV ONE (12:27)
--- NOTE | 2020-02-29 12:29 | ER Document Report ---
ED GI/ - General Chief Complaint: Flank Pain Stated Complaint: FLANK PAIN Time Seen by Provider: 02/29/20 12:15 Primary Care Provider: CURT ZAMARRIPA MD [Primary Care Provider] - Follow up as needed Notes: CHIEF COMPLAINT: Left flank pain intermittent for 1 to 2 weeks, pelvic pain persistent for 1 week HPI: 39-year-old female presenting for left flank pain intermittently for 1 to 2 weeks. States she was told previously she had a kidney stone on the left side that had not yet fallen. Patient also with pelvic pain across the entire pelvis for 1 week persistently. Does report some increased frequency of urination denies fever does complain of nausea. Denies vaginal discharge or bleeding ROS: See HPI - all other systems were reviewed and are otherwise negative Constitutional: no fever or recent illness Eyes: no drainage, no blurred vision ENT: no runny nose, no sore throat Cardiovascular: no chest pain Resp: no SOB, no cough GI: no vomiting, no diarrhea, positive nausea, positive pelvic pain : no dysuria, no vaginal discharge, positive frequency Integumentary: no rash Allergy: no hives Musculoskeletal: no extremity pain or swelling Neurological: no numbness/tingling, no weakness MEDICATIONS: I agree with the patient medications as charted by the RN. ALLERGIES: I agree with the allergies as charted by the RN. PAST MEDICAL HISTORY/PAST SURGICAL HISTORY: Reviewed and agree as charted by RN. SOCIAL HISTORY: Reviewed and agree as charted by RN. FAMILY HISTORY: No significant familial comorbid conditions directly related to patient complaint EXAM: Reviewed vital signs as charted by RN. CONSTITUTIONAL: Alert and oriented and responds appropriately to questions. Well-appearing; well-nourished, mild distress secondary to pain HEAD: Normocephalic; atraumatic EYES: PERRL; Conjunctivae clear, sclerae non-icteric ENT: normal nose; no rhinorrhea; moist mucous membranes; pharynx without lesions noted NECK: Supple without meningismus; non-tender; no cervical lymphadenopathy, no masses CARD: RRR; no murmurs, no clicks, no rubs, no gallops; symmetric distal pulses RESP: Normal chest excursion without splinting or tachypnea; breath sounds clear and equal bilaterally; no wheezes, no rhonchi, no rales ABD/GI: Normal bowel sounds; non-distended; soft, non-tender, no rebound, no guarding; no palpable organomegaly or masses : 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 External genitalia normal. No skin lesions noted. Pelvic Exam: No active bleeding. Small amount of a thin white discharge. Cervix appears normal. No CMT. No lesions or masses. Uterus normal size and mildly tender. Right/Left adnexa normal size and mildly tender bilaterally but more tender on the left adnexa BACK: The back appears normal and is non-tender to palpation, there is no CVA tenderness EXT: Normal ROM in all joints; non-tender to palpation; no cyanosis, no effusions, no edema SKIN: Normal color for age and race; warm; dry; good turgor; no acute lesions noted NEURO: Moves all extremities equally; Motor and sensory function intact PSYCH: The patient's mood and manner are appropriate. Grooming and personal hygiene are appropriate. MDM: 39-year-old female left flank pain intermittently for 1 to 2 weeks with pelvic pain for 1 week. Questionable history of ovarian cysts does have 3 mm kidney stone noted on CT imaging several weeks ago. Will obtain KUB to see if we can evaluate for stone placement. Will obtain pelvic ultrasound to evaluate for possible ovarian cyst. Will add renal ultrasound as well to evaluate for hydronephrosis TRAVEL OUTSIDE OF THE [place] IN LAST 30 DAYS: No - Related Data Allergies/Adverse Reactions: Penicillins Allergy (Mild, Verified 02/17/20 13:28) GI upset Past Medical History - Social History Smoking Status: Unknown if Ever Smoked Family History: Reviewed & Not Pertinent - Past Medical History Cardiac Medical History: Denies: Hx Coronary Artery Disease, Hx Heart Attack, Hx Hypertension Pulmonary Medical History: Reports: Hx Asthma - RARELY USE INHALER Denies: Hx Bronchitis, Hx COPD, Hx Pneumonia Neurological Medical History: Reports: Hx Seizures - 5 YEARS AGO. Denies: Hx Cerebrovascular Accident Musculoskeletal Medical History: Denies Hx Arthritis - Immunizations Hx Diphtheria, Pertussis, Tetanus Vaccination: No Physical Exam - Vital signs Vitals: Temp Pulse Resp BP Pulse Ox 98.0 F 87 16 113/58 L 98 02/29/20 12:08 02/29/20 12:08 02/29/20 12:08 02/29/20 12:08 02/29/20 12:08 Course - Re-evaluation Re-evalutation: 02/29/20 15:13 Patient lab work does not show acute emergent abnormalities. Very slight hematuria in the urine but no sign of an infection. KUB did not specifically show kidney stone on the left. Renal and pelvic ultrasound did not show acute emergent abnormalities but no ovarian cyst no torsion. Patient is noted to have vaginitis. Patient may have mild PID given her discomfort during her exam. Will place on doxycycline and Flagyl. She still has pain medication left from prior kidney stone which she will take at home. Patient does have an [employer] for close follow-up. She had no right-sided pain suggesting appendicitis. Patient discomfort was across the entire pelvis which would be unusual for passage of a stone - Vital Signs Vital signs: Temp Pulse Resp BP Pulse Ox 98.0 F 87 16 113/58 L 98 02/29/20 12:08 02/29/20 12:08 02/29/20 12:08 02/29/20 12:08 02/29/20 12:08 - Laboratory Result Diagrams: 02/29/20 12:56 02/29/20 12:56 Laboratory results interpreted by me: 02/29/20 02/29/20 12:56 12:56 Sodium 136.8 L Carbon Dioxide 31 H Urine Blood MODERATE H Discharge - Discharge Clinical Impression: Acute pelvic pain, female, Left flank pain Condition: Stable Disposition: HOME, SELF-CARE Additional Instructions: Your lab work did not show acute emergent abnormalities although it was noted that you have bacterial vaginitis. You may also have mild pelvic inflammatory disease given the degree of tenderness you had on your exam today. Your ultrasound of the kidneys and the pelvic area did not show acute emergent abnormalities. Take the antibiotics as prescribed. Follow-up with your [employer] for further evaluation and treatment as discussed call for appointment. Prescriptions: Doxycycline Monohydrate 100 mg PO BID #28 capsule Metronidazole [Flagyl 500 mg Tablet] 500 mg PO BID #28 tablet Referrals: CURT ZAMARRIPA MD [Primary Care Provider] - Follow up as needed
[2020-02-29] MEDS ORDERED: ONDANSETRON HCL INJ/PF 4 MG/2 ML SDV IV ONE (12:39)
[2020-02-29 13:18] LABS: ABSOLUTE BASOPHILS # (AUTO) 0.1 10^3/uL (0.0-0.2); ABSOLUTE EOSINOPHILS # (AUTO) 0.1 10^3/uL (0.0-0.6); ABSOLUTE LYMPHOCYTES (AUTO) 2.3 10^3/uL (0.5-4.7); ABSOLUTE MONOCYTES (AUTO) 0.5 10^3/uL (0.1-1.4); ABSOLUTE NEUT (AUTO) 3.9 10^3/uL (1.7-8.2); BASOPHILS % (AUTO) 1.3 % (0-2); EOSINOPHILS % (AUTO) 1.5 % (0-6); HEMATOCRIT 38.3 % (36.0-47.0); HEMOGLOBIN 13.4 g/dL (12.0-15.5); LYMPHOCYTES % (AUTO) 33.4 % (13-45); MEAN CORPUSCULAR VOLUME 89 fl (80-97); PLATELET COUNT 266 10^3/uL (150-450); RED BLOOD COUNT 4.32 10^6/uL (3.72-5.28); RED CELL DISTRIBUTION WIDTH 13.7 % (11.5-14.0); SEGMENTED NEUTROPHILS % (AUTO) 56.8 % (42-78); TOTAL CELLS COUNTED % (AUTO) 100 %; WHITE BLOOD COUNT 6.9 10^3/uL (4.0-10.5)
[2020-02-29 13:19] LABS: BACTERIA (WET MOUNT) 4+ BACTERIA SEEN; EPITHELIALS (WET MOUNT) 4+ EPITHELIALS SEEN; T.VAGINALIS (WET MOUNT) NO TRICHOMONAS SEEN; WBCS (WET MOUNT) 1+ WBCS SEEN; YEAST (WET MOUNT) NO YEAST SEEN
[2020-02-29 13:25] LABS: APPEARANCE,URINE SLIGHTLY-CLOUDY; BILIRUBIN,URINE NEGATIVE (NEGATIVE); COLOR,URINE YELLOW; GLUCOSE, URINE NEGATIVE (NEGATIVE); KETONES,URINE NEGATIVE (NEGATIVE); LEUKOCYTE ESTERASE,URINE NEGATIVE (NEGATIVE); NITRITE,URINE NEGATIVE (NEGATIVE); PROTEIN,URINE NEGATIVE (NEGATIVE); URINE SPECIFIC GRAVITY 1.017; UROBILINOGEN,URINE NEGATIVE mg/dL (<2.0)
--- NOTE | 2020-02-29 13:45 | RADIOLOGY REPORT (SQ) ---
EXAM DESCRIPTION: KUB/ABDOMEN (SINGLE VIEW) IMAGES COMPLETED DATE/TIME: 02/29/2020 1:17 pm REASON FOR STUDY: eval for possi left kidney stone COMPARISON: None. NUMBER OF VIEWS: One view. TECHNIQUE: Supine radiographic image of the abdomen acquired. LIMITATIONS: None. FINDINGS: BOWEL GAS PATTERN: Normal bowel gas pattern. No dilated loops. CALCIFICATIONS: No suspicious calcifications. SOFT TISSUES: No gross mass or suggestion of organomegaly. HARDWARE: None in the abdomen. BONES: No acute fracture. No worrisome bone lesions. OTHER: No other significant finding. IMPRESSION: NO RADIOGRAPHIC EVIDENCE FOR ACUTE ABDOMINAL DISEASE. TECHNICAL DOCUMENTATION: JOB ID: [id number] [employer]- All Rights Reserved Reading location - IP/workstation name: [email or web address]
[2020-02-29 13:52] LABS: ALBUMIN 4.4 g/dL (3.5-5.0); ALKALINE PHOSPHATASE 53 U/L (38-126); ANION GAP 6 (5-19); ASPARTATE AMINO TRANSFERASE 23 U/L (14-36); BILIRUBIN,TOTAL 0.4 mg/dL (0.2-1.3); BLOOD UREA NITROGEN 10 mg/dL (7-20); CALCIUM 9.2 mg/dL (8.4-10.2); CARBON DIOXIDE 31 mmol/L (22-30); CHLORIDE 100 mmol/L (98-107); GLUCOSE 96 mg/dL (75-110); POTASSIUM 3.9 mmol/L (3.6-5.0); TOTAL PROTEIN 7.7 g/dL (6.3-8.2)
--- NOTE | 2020-02-29 14:31 | RADIOLOGY REPORT (SQ) ---
EXAM DESCRIPTION: U/S RETROPERITON (RENAL/AORTA) IMAGES COMPLETED DATE/TIME: 02/29/2020 2:03 pm REASON FOR STUDY: evaluate for hydro left kidney COMPARISON: None. TECHNIQUE: Dynamic and static grayscale images acquired of the kidneys and bladder and recorded on P ACS. Additional selected color Doppler and spectral images recorded. LIMITATIONS: None. FINDINGS: RIGHT KIDNEY: Normal size. Normal echogenicity. No solid or suspicious masses. No hydronep hrosis. No calcifications. LEFT KIDNEY: Normal size. Normal echogenicity. No solid or suspicious masses. No hydronephrosis. No calcifications. BLADDER: No masses. OTHER FINDINGS: No other significant finding. IMPRESSION: NORMAL RENAL AND BLADDER ULTRASOUND. TECHNICAL DOCUMENTATION: JOB ID: [id number] [employer]- All Rights Reserved Reading location - IP/workstation name: [email or web address]
--- NOTE | 2020-02-29 14:38 | RADIOLOGY REPORT (SQ) ---
EXAM DESCRIPTION: U/S NON OB PEL TV W/DOPPLER IMAGES COMPLETED DATE/TIME: 02/29/2020 2:13 pm REASON FOR STUDY: pelvic pain ? ovarian cyst COMPARISON: CT abdomen and pelvis examination dated 02/17/2020. TECHNIQUE: Dynamic and static grayscale images acquired of the pelvis via transvaginal approach and recorded on PACS. Additional selected color Doppler and spectral images recorded. LIMITATIONS: None. FINDINGS: UTERUS: Contour normal. No mass. ENDOMETRIAL STRIPE: No focal or generalized thickening. No masses. CERVIX: The cervix measures 3.1 cm in length. No nabothian cysts. RIGHT OVARY AND DOPPLER: Normal size. No worrisome masses. Normal arterial vascular flow without evid ence for torsion. LEFT OVARY AND DOPPLER: Normal size. No worrisome masses. Normal arterial vascular flow without evide nce for torsion. FREE FLUID: None noted. OTHER: No other significant finding. MEASUREMENTS: UTERUS: 8.7 x 5.8 x 4.3 cm ENDOMETRIAL STRIPE: 1.3 cm RIGHT OVARY: 2.5 x 1.1 x 1.9 cm LEFT OVARY: 2.6 x 2.0 x 2.0 cm IMPRESSION: 1. Examination is unremarkable sonographically. TECHNICAL DOCUMENTATION: JOB ID: [id number] 2010 [employer]- All Rights Reserved Rev-04/01 Reading location - IP/workstation name: [email or web address]
[2020-02-29 14:46] LABS: CHLAM PCR NOT DETECTED (NOT DETECT)
[2020-02-29 15:13] VITALS: BP 102/49
[2020-02-29] MEDS ORDERED: DOXYCYCLINE HYCLATE 100 MG TABLET PO ONE (15:14)
[2020-02-29] MEDS ORDERED: METRONIDAZOLE 500 MG TABLET PO ONE (15:14)
== END 2020-02-29 15:24 | disposition home or self-care (01) ==
LOC: ER 12:04
DX: N76.0 Acute vaginitis (principal); B96.89 Other specified bacterial agents as the cause of diseases classified elsewhere; R31.9 Hematuria, unspecified; R10.2 Pelvic and perineal pain; R10.9 Unspecified abdominal pain; R35.0 Frequency of micturition; R11.0 Nausea; J45.909 Unspecified asthma, uncomplicated; Z87.442 Personal history of urinary calculi; Z88.0 Allergy status to penicillin
CPT/HCPCS: 99284; 96374; 96375; 36415; 87210; 85025; 81025; 80053; 81001; 87491; 87591; 74018; 76770; 76830; 93976; J3490 ×2; J1885; J2405

== ENCOUNTER 2020-04-07 05:24 | Emergency (ER) | payer MEDICAID ==
[2020-04-07 05:29] VITALS: BP 111/70
[2020-04-07] MEDS ORDERED: HYDROCODONE/ACETAMINOPHEN 5-325 MG (6 TAB/ER DISP) PO PRN (05:48)
[2020-04-07] MEDS ORDERED: CIPROFLOXACIN HCL/DEXAMETH OTIC DROP 7.5 ML AS ONE (05:48)
[2020-04-07] MEDS ORDERED: CLINDAMYCIN HCL 150 MG CAPSULE PO ONE (05:52)
--- NOTE | 2020-04-07 05:53 | ER Document Report ---
HPI - HPI Time Seen by Provider: 04/07/20 05:40 Pain Level: 4 Notes: 39-year-old female presenting to the emergency department with chief complaint of bilateral ear pain. Patient reports pain ongoing for 4 days now. Patient reports pain worse on the left. She also complains of sinus pressure. She denies any fevers. She states she has had similar symptoms multiple times in the past. - REPRODUCTIVE LMP: 03/15/20 Reproductive: DENIES: : Past Medical History - General Information source: Patient - Social History Smoking Status: Never Smoker Family History: Reviewed & Not Pertinent Patient has homicidal ideation: No - Past Medical History Cardiac Medical History: Denies: Hx Coronary Artery Disease, Hx Heart Attack, Hx Hypertension Pulmonary Medical History: Reports: Hx Asthma - RARELY USE INHALER Denies: Hx Bronchitis, Hx COPD, Hx Pneumonia Neurological Medical History: Reports: Hx Seizures - 5 YEARS AGO. Denies: Hx Cerebrovascular Accident Musculoskeletal Medical History: Denies Hx Arthritis - Immunizations Hx Diphtheria, Pertussis, Tetanus Vaccination: No Vertical Provider Document - CONSTITUTIONAL Notes: PHYSICAL EXAMINATION: GENERAL: Well-appearing, well-nourished and in no acute distress. HEAD: Atraumatic, normocephalic. EYES: Pupils equal round extraocular movements intact, conjunctiva are normal. ENT: Right TM and canal unremarkable. Left TM erythematous, left canal erythematous and retracted. No mastoid tenderness bilaterally. NECK: Normal range of motion, no cervical lymphadenopathy. LUNGS: No respiratory distress Musculoskeletal: Normal range of motion NEUROLOGICAL: Normal speech, normal gait. PSYCH: Normal mood, normal affect. SKIN: Warm, Dry, normal turgor, no rashes or lesions noted. - INFECTION CONTROL TRAVEL OUTSIDE OF THE [place] IN LAST 30 DAYS: No Course - Re-evaluation Re-evalutation: Patient initially tachycardic on arrival. Manual heart rate 92. Exam consistent with acute otitis media and externa to left ear. Patient will be started on appropriate antibiotics. She will follow-up with primary care and/or ENT. - Vital Signs Vital signs: Temp Pulse Resp BP Pulse Ox 98.8 F 120 H 20 111/70 97 04/07/20 05:28 04/07/20 05:28 04/07/20 05:28 04/07/20 05:28 04/07/20 05:28 Discharge - Discharge Clinical Impression: Otitis media Qualifiers: Otitis media type: unspecified Chronicity: acute Qualified Code(s): H66.90 - Otitis media, unspecified, unspecified ear Otitis externa Qualifiers: Otitis externa type: unspecified type Chronicity: acute Laterality: left Qualified Code(s): H60.502 - Unspecified acute noninfective otitis externa, left ear Condition: Stable Disposition: HOME, SELF-CARE Instructions: Otitis Externa ([facility]), Otitis Media ([facility]) Additional Instructions: Please take medication as prescribed. You may use the [place] 1 tablet every 4-6 hours as needed for severe pain only. Do not apply any more eardrops other than the ones that we are sending you home with. Use 4 drops of the Ciprodex eardrops to the affected ear twice daily for 7 days. Follow-up with ENT if not significantly improving over the next 5 to 7 days. Prescriptions: Azithromycin [Zithromax 250 mg Tablet] 250 mg PO ASDIR PRN #6 tablet PRN Reason: Referrals: DIANA PADILLA DO [ASSOCIATE] - Follow up as needed
== END 2020-04-07 06:12 | disposition home or self-care (01) ==
LOC: ER 05:24
DX: H66.90 Otitis media, unspecified, unspecified ear (principal); H60.502 Unspecified acute noninfective otitis externa, left ear; H92.03 Otalgia, bilateral; I10 Essential (primary) hypertension; J45.909 Unspecified asthma, uncomplicated
CPT/HCPCS: 99282; J3490

== ENCOUNTER 2020-04-09 00:19 | Emergency (ER) | payer MEDICAID ==
--- NOTE | 2020-04-09 00:43 | ER Document Report ---
ED GI/ - General Chief Complaint: Possible Kidney Stone Stated Complaint: KIDNEY PAIN Time Seen by Provider: 04/09/20 00:32 Notes: CHIEF COMPLAINT: Left flank pain tonight with dysuria HPI: 39-year-old female with history of kidney stones presenting to the emergency department complaining of some left flank pain that began around 10 PM with some frequency of urination and dysuria. Patient states that she was diagnosed a month ago with kidney stones, was passing one on the right but states she also had one on the left. She is worried she is passing another kidney stone. No vomiting no fever ROS: See HPI - all other systems were reviewed and are otherwise negative Constitutional: no fever Eyes: no drainage, no blurred vision ENT: no runny nose, no sore throat Cardiovascular: no chest pain Resp: no SOB, no cough GI: no vomiting, no diarrhea, + left abdominal pain : Positive dysuria, positive frequency Integumentary: no rash Allergy: no hives Musculoskeletal: no extremity pain or swelling Neurological: no incontinence of urine MEDICATIONS: I agree with the patient medications as charted by the RN. ALLERGIES: I agree with the allergies as charted by the RN. PAST MEDICAL HISTORY/PAST SURGICAL HISTORY: Reviewed and agree as charted by RN. SOCIAL HISTORY: Reviewed and agree as charted by RN. FAMILY HISTORY: No significant familial comorbid conditions directly related to patient complaint EXAM: Reviewed vital signs as charted by RN. CONSTITUTIONAL: Alert and oriented and responds appropriately to questions. Well-appearing; well-nourished HEAD: Normocephalic; atraumatic EYES: PERRL; Conjunctivae clear, sclerae non-icteric ENT: normal nose; no rhinorrhea; moist mucous membranes NECK: Supple without meningismus; non-tender; no cervical lymphadenopathy, no masses CARD: RRR; no murmurs, no clicks, no rubs, no gallops; symmetric distal pulses RESP: Normal chest excursion without splinting or tachypnea; breath sounds clear and equal bilaterally; no wheezes, no rhonchi, no rales, pulse oximetry 98% on room air not hypoxic ABD/GI: Normal bowel sounds; non-distended; soft, minimal tenderness in the left flank region on palpation, no rebound, no guarding; no palpable organomegaly or masses. BACK: The back appears normal and is non-tender to palpation, there is no CVA tenderness EXT: Normal ROM in all joints; non-tender to palpation; no cyanosis, no effusions, no edema SKIN: Normal color for age and race; warm; dry; good turgor; no acute lesions noted NEURO: Moves all extremities equally; Motor and sensory function intact PSYCH: The patient's mood and manner are appropriate. Grooming and personal hygiene are appropriate. MDM: 39-year-old female with history of kidney stones, I did review the records, she had CT imaging when I saw this patient in February of this year. At that time she was passing a 2 mm kidney stone on the right but did have a 3 mm stone in the left kidney. We will obtain a KUB to see if we can evaluate placement of the left kidney stone. She is declining pain medication at this time TRAVEL OUTSIDE OF THE [place] IN LAST 30 DAYS: No - Related Data Allergies/Adverse Reactions: Penicillins Allergy (Mild, Verified 02/17/20 13:28) GI upset Past Medical History - Social History Smoking Status: Unknown if Ever Smoked Family History: Reviewed & Not Pertinent - Past Medical History Cardiac Medical History: Denies: Hx Coronary Artery Disease, Hx Heart Attack, Hx Hypertension Pulmonary Medical History: Reports: Hx Asthma - RARELY USE INHALER Denies: Hx Bronchitis, Hx COPD, Hx Pneumonia Neurological Medical History: Reports: Hx Seizures - 5 YEARS AGO. Denies: Hx Cerebrovascular Accident Musculoskeletal Medical History: Denies Hx Arthritis - Immunizations Hx Diphtheria, Pertussis, Tetanus Vaccination: No Physical Exam - Vital signs Vitals: Temp 98.5 F 04/09/20 00:21 Course - Re-evaluation Re-evalutation: 04/09/20 02:03 I discussed evaluation results with the patient. I suspect she is likely pa ssing a kidney stone based on no calcifications on the KUB in the abdomen. I did offer further imaging including CT and ultrasound which patient declines at this time she also believes she is passing a kidney stone. I will place the patient back on Flomax, anti-inflammatories and pain medication. She has Zofran at home from her prior visit I will refer again to urology for follow-up with return instructions for uncontrolled pain or vomiting or fever - Vital Signs Vital signs: Temp Pulse Resp BP Pulse Ox 98.5 F 76 18 117/83 100 04/09/20 00:52 04/09/20 00:52 04/09/20 00:52 04/09/20 00:52 04/09/20 00:52 - Laboratory Laboratory results interpreted by me: 04/09/20 00:32 Urine Blood MODERATE H Discharge - Discharge Clinical Impression: Acute left flank pain Hematuria Qualifiers: Hematuria type: unspecified type Qualified Code(s): R31.9 - Hematuria, unspecified Condition: Stable Disposition: HOME, SELF-CARE Additional Instructions: 1. return to the ED for any fever, back pain or worsening condition 2. hydrate well at home to flush the system. 3. Percocet for pain, no driving if taking Percocet for pain 4. follow up with Urology for further evaluation and treatment Prescriptions: Ketorolac Tromethamine [Toradol 10 mg Tablet] 10 mg PO Q6HP PRN #20 tablet PRN Reason: Tamsulosin HCl [Flomax 0.4 mg Cap.sr] 0.4 mg PO DAILY #7 cap.sr.24h Oxycodone HCl/Acetaminophen [Percocet 5-325 mg Tablet] 1 tab PO Q4H PRN #15 tab PRN Reason: Referrals: CURT ZAMARRIPA MD [Primary Care Provider] - Follow up as needed TRISTA SANCHES MD [NO LOCAL MD] - Follow up as needed
[2020-04-09 01:13] LABS: APPEARANCE,URINE CLEAR; BILIRUBIN,URINE NEGATIVE (NEGATIVE); COLOR,URINE COLORLESS; GLUCOSE, URINE NEGATIVE (NEGATIVE); KETONES,URINE NEGATIVE (NEGATIVE); LEUKOCYTE ESTERASE,URINE NEGATIVE (NEGATIVE); NITRITE,URINE NEGATIVE (NEGATIVE); PROTEIN,URINE NEGATIVE (NEGATIVE); URINE SPECIFIC GRAVITY 1.002; UROBILINOGEN,URINE NEGATIVE mg/dL (<2.0)
--- NOTE | 2020-04-09 01:45 | RADIOLOGY REPORT (SQ) ---
ABDOMINAL RADIOGRAPHS: 04/09/2020 12:43 AM CDT COMPARISON: Abdominal radiograph performed 02/29/2020 TECHNIQUE: Two supine radiographs of the abdomen were obtained. HISTORY: 39-year old with left-sided flank pain, concern for calculus. FINDINGS: The visualized bowel gas pattern is nonspecific and nonobstructive. No abnormal intraabdominal calcifications are seen. There are no findings to suggest organomegaly. The lung bases were not fully included on this examination. Surgical clips are seen overlying the right upper quadrant of the abdomen, consistent with a previous cholecystectomy. A moderate amount of stool is seen at the colon. IMPRESSION: The bowel gas pattern is nonobstructive and nonspecific.
[2020-04-09] MEDS ORDERED: TAMSULOSIN HCL 0.4 MG CAP.SR.24H PO ONE (01:57)
[2020-04-09] MEDS ORDERED: KETOROLAC TROMETHAMINE 60 MG/2 ML SDV IM ONE (01:57)
[2020-04-09 02:29] VITALS: BP 119/83
== END 2020-04-09 02:29 | disposition home or self-care (01) ==
LOC: ER 00:19
DX: R10.9 Unspecified abdominal pain (principal); R31.9 Hematuria, unspecified; R30.0 Dysuria; Z87.442 Personal history of urinary calculi; Z88.0 Allergy status to penicillin
CPT/HCPCS: 99284; 96374; 81025; 81001; 74018; J1885; J3490

== ENCOUNTER 2020-11-25 06:45 | Day surgery (SDC) | payer MEDICAID ==
[2020-11-25] MEDS ORDERED: PROPOFOL INJ 200 MG/20 ML VIAL IV ONE ×2 (07:42→08:20)
[2020-11-25 09:58] VITALS: BP 98/61
--- NOTE | 2020-11-25 11:41 | Operative Report ---
Operative Report DATE OF SURGERY: 11/25/20 Operative Report: The risk, benefits and alternatives of the procedure including the risk of bleeding, perforation requiring surgery have been explained to the patient in detail and informed consent has been obtained. Patient is taken back to the operating room and placed in left, lateral decubital position. Timeout was called. Propofol medication is administered. Rectal examination is done which did not reveal any masses, tears or fissures. An Olympus videoscope was introduced into the patient's rectum. Scope was then carefully advanced all the way to the cecum. Cecum was identified by the usual anatomical landmarks including the ileocecal valve as well as the appendiceal office. Photodocumentation is obtained. Scope was then sequentially pulled back via the various segments of the colon including the ascending colon, hepatic flexure, transverse colon, splenic flexure, descending colon and finally into the rectosigmoid portions of the colon. Retroflexion maneuvers performed. The risks benefits and alternatives of the procedure explained to the patient in detail and informed consent is obtained.A GIF Olympus video scope was inserted into the patient's mouth and hypopharynx, the esophagus is identified intubated and insufflated, the scope was then advanced through the esophagus stomach and duodenum, retroflexion maneuver is done ,the esophagus stomach and first and second portions of the duodenum examined PREOPERATIVE DIAGNOSIS: Colorectal cancer screening. Gastroesophageal reflux disease with mild dysphagia POSTOPERATIVE DIAGNOSIS: Normal screening colonoscopy. Gastritis status post biopsy rule out Helicobacter pylori. Schatzki's ring status post breakage. Esophagitis status post biopsy OPERATION: Diagnostic colonoscopy. EGD with biopsy SURGEON: DAJA CRANE ANESTHESIA: LMAC TISSUE REMOVED OR ALTERED: As noted above. COMPLICATIONS: None. ESTIMATED BLOOD LOSS: None. INTRAOPERATIVE FINDINGS: As noted above. PROCEDURE: Patient tolerated the procedure well. No immediate postprocedure complications are noted. Patient is discharged in good condition. Discharge date 11/25/2020. Discharge diet: Regular. Discharge activity: Regular. 2 to 3-week follow-up to discuss findings. Patient is instructed call the office or proceed to the emergency room should there be any further problems or questions. Wait on the pathology. 10-year screening colonoscopy.
== END 2020-11-25 10:05 | disposition home or self-care (01) ==
LOC: OROUT 06:45
PROVIDERS: ATTEND Internal Medicine Gastroenterology
DX: K29.50 Unspecified chronic gastritis without bleeding (principal); K20.90 Esophagitis, unspecified without bleeding; K22.2 Esophageal obstruction; Z80.0 Family history of malignant neoplasm of digestive organs; Z20.822 Contact with and (suspected) exposure to COVID-19; Z90.49 Acquired absence of other specified parts of digestive tract; J45.909 Unspecified asthma, uncomplicated; Z79.899 Other long term (current) drug therapy
CPT/HCPCS: 43239; 45378; 88305 ×2; 00813; J2704; 813